=== PATIENT | male | born 1945 | race Two or more races ===

== ENCOUNTER 2022-05-27 10:17 | Inpatient (IN) | payer OTHER, MEDICAID ==
[~2022-05-27] VITALS: Ht 172.7 cm; Wt 77.2 kg
[2022-05-27] MEDS ORDERED: SODIUM CHLORIDE 0.9% 1,000 ML IV ONE (11:00)
[2022-05-27 11:25] LABS: Basophils # (auto) 0 10 ^3/uL (0-0.2); Basophils % (auto) 0.2 % (0.0-2.0); Eosinophils # (auto) 0.1 10 ^3/uL (0-0.8); Eosinophils % (auto) 0.5 % (0.0-7.0); Hematocrit 37.8 % (41.0-53.0); Hemoglobin 12.3 g/dL (13.5-17.5); Lymphocytes # (auto) 0.7 10 ^3/uL (0.4-5.4); Lymphocytes % (auto) 4.7 % (10.0-50.0); Mean Corpuscular Hemoglobin 29.3 pg (28.0-32.0); Mean Corpuscular Hgb Conc. 32.6 g/dL (32.0-36.0); Monocytes # (auto) 0.7 10 ^3/uL (0-1.3); Monocytes % (auto) 4.9 % (0.0-12.0); Neutrophils # (auto) 12.7 10 ^3/uL (1.6-8.6); Neutrophils % (auto) 89.7 % (37.0-80.0); Red Cell Distribution Width 14.8 % (11.8-14.3); White Blood Cell 14.1 10^3/uL (4.4-10.8)
[2022-05-27 11:43] LABS: Albumin 2.9 g/dL (3.4-5.0); BUN/Creatinine Ratio 27.1; Calcium 8.4 mg/dL (8.5-10.1); Potassium 4.2 mmol/L (3.5-5.1)
[2022-05-27 11:45] LABS: Bilirubin, Total 0.2 mg/dL (0.2-1.0); Total Protein 6.3 g/dL (6.4-8.2)
[2022-05-27 12:15] LABS: Urine Bacteria NONE SEEN /hpf (None Seen); Urine Blood TRACE /uL (Negative); Urine Hyaline Cast FEW /lpf (0 - 2); Urine Mucus FEW (None Seen); Urine Specific Gravity 1.021 (1.001-1.035); Urine WBC 1 /hpf (0 - 3)
[2022-05-27] MEDS ORDERED: IOHEXOL 350 MG/ML 100ML IJ ONE (13:04)
[2022-05-27] MEDS ORDERED: METF-869 PO (16:07)
[2022-05-27] MEDS ORDERED: TAMS1CAP25 PO (16:07)
[2022-05-27] MEDS ORDERED: ASPI-325 PO (16:07)
[2022-05-27] MEDS ORDERED: FLUT1AER3 INH (16:07)
[2022-05-27] MEDS ORDERED: LISI2.5T47 PO (16:07)
[2022-05-27] MEDS ORDERED: NINT1CAP2 PO (16:07)
[2022-05-27] MEDS ORDERED: ATOR10TA52 PO (16:07)
[2022-05-27] MEDS ORDERED: PANT40T PO (16:07)
[2022-05-27] MEDS ORDERED: MORPHINE SULFATE INJ 2 MG/ml SYRG IV PRN (16:15)
[2022-05-27] MEDS ORDERED: DEXTROSE (50%) 50ML SYRG IV PRN (16:15)
[2022-05-27] MEDS ORDERED: ONDANSETRON HCL 4 MG/2 ML VIAL IV PRN (16:15)
[2022-05-27] MEDS ORDERED: DOCUSATE SOD 100 MG CAP PO PRN (16:15)
[2022-05-27] MEDS ORDERED: NITROGLYCERIN 0.4 MG SL TAB SL PRN (16:15)
[2022-05-27] MEDS: SODIUM CHLORIDE 0.9% 1,000 ML IV SCH (16:36)
[2022-05-27] MEDS: ACCU-CHEK COMFORT CURVE STRIP VI SCH ×2 (16:44→23:26)
[2022-05-27] MEDS: InsuLIN REG 1unit/0.01ml Soln (100units/ml) SC SCH ×2 (16:45→23:33)
[2022-05-27] MEDS ORDERED: methylPREDNISolone SOD SUCC 125 MG/2 ML VL IV ONE (17:00)
[2022-05-27] MEDS ORDERED: ALBUTEROL SULF 2.5 MG/0.5ML(0.5%) NEB SOLN NEB PRN (17:00)
[2022-05-27] MEDS ORDERED: IPRATROPIUM BROM 0.5 MG/2.5ML INH SOL NEB PRN (17:00)
[2022-05-27] MEDS: NEOMYCIN-BACITRACIN-POLYM 15GM TOP OINT TOP SCH (23:32)
[2022-05-27] MEDS: methylPREDNISolone SOD SUCC 125 MG/2 ML VL IV SCH (23:32)
[2022-05-27] MEDS: ATORVASTATIN 20 MG TAB PO SCH (23:32)
[2022-05-28 03:30] VITALS: BP 124/71
[2022-05-28] MEDS: SODIUM CHLORIDE 0.9% 1,000 ML IV SCH (05:31)
[2022-05-28] MEDS: NEOMYCIN-BACITRACIN-POLYM 15GM TOP OINT TOP SCH ×3 (06:10→22:00)
[2022-05-28 06:35] LABS: Basophils # (auto) 0 10 ^3/uL (0-0.2); Eosinophils # (auto) 0 10 ^3/uL (0-0.8); Hematocrit 35.3 % (41.0-53.0); Hemoglobin 12.1 g/dL (13.5-17.5); Lymphocytes # (auto) 0.6 10 ^3/uL (0.4-5.4); Lymphocytes % (auto) 5.6 % (10.0-50.0); Mean Corpuscular Hemoglobin 30.4 pg (28.0-32.0); Mean Corpuscular Hgb Conc. 34.1 g/dL (32.0-36.0); Mean Corpuscular Volume 89.1 fL (80.0-100.0); Monocytes # (auto) 0.1 10 ^3/uL (0-1.3); Monocytes % (auto) 1.1 % (0.0-12.0); Neutrophils # (auto) 10.2 10 ^3/uL (1.6-8.6); Neutrophils % (auto) 93.3 % (37.0-80.0); Red Blood Cells 3.97 10^6/uL (4.5-5.90); Red Cell Distribution Width 14.8 % (11.8-14.3)
[2022-05-28] MEDS: ACCU-CHEK COMFORT CURVE STRIP VI SCH ×4 (06:40→23:11)
[2022-05-28] MEDS: methylPREDNISolone SOD SUCC 125 MG/2 ML VL IV SCH ×3 (06:46→23:10)
[2022-05-28] MEDS: InsuLIN REG 1unit/0.01ml Soln (100units/ml) SC SCH ×4 (06:48→23:37)
[2022-05-28 06:55] LABS: Albumin 2.6 g/dL (3.4-5.0); Calcium 8.7 mg/dL (8.5-10.1); Potassium 4.4 mmol/L (3.5-5.1)
[2022-05-28 07:00] LABS: BUN/Creatinine Ratio 22.6; Bilirubin, Total 0.3 mg/dL (0.2-1.0); Total Protein 6.4 g/dL (6.4-8.2)
[2022-05-28] MEDS: PANTOPRAZOLE 40 MG/10 ML VIAL INJ IV SCH (09:56)
[2022-05-28] MEDS ORDERED: ASPirin 81 mg TAB PO ONE (12:00)
[2022-05-28] MEDS ORDERED: NINT1CAP2 PO (22:35)
[2022-05-28] MEDS ORDERED: VALA500T33 PO (22:35)
[2022-05-28] MEDS: ATORVASTATIN 20 MG TAB PO SCH (23:11)
[2022-05-29 05:00] VITALS: BP 138/68
[2022-05-29] MEDS: HYDROcodone-ACET 7.5/325MG TAB PO PRN ×2 (05:20→17:06)
[2022-05-29] MEDS: methylPREDNISolone SOD SUCC 125 MG/2 ML VL IV SCH ×3 (05:21→22:48)
[2022-05-29] MEDS: NEOMYCIN-BACITRACIN-POLYM 15GM TOP OINT TOP SCH ×3 (05:28→22:49)
[2022-05-29] MEDS: ACCU-CHEK COMFORT CURVE STRIP VI SCH ×4 (05:35→22:48)
[2022-05-29] MEDS: InsuLIN REG 1unit/0.01ml Soln (100units/ml) SC SCH ×4 (05:36→22:51)
[2022-05-29 08:42] LABS: Cholesterol 153 mg/dL (< 200); HDL Cholesterol 61 mg/dL (40-59); LDL Cholesterol 78 mg/dL (< 100); Triglycerides 105 mg/dL (< 150)
[2022-05-29 09:14] VITALS: BP 135/66
[2022-05-29] MEDS: ASPirin 81 mg TAB PO SCH (10:14)
[2022-05-29] MEDS: PANTOPRAZOLE 40 MG/10 ML VIAL INJ IV SCH (10:15)
[2022-05-29] MEDS: NINTEDANIB ESYLATE 150 MG PO SCH ×2 (11:41→22:48)
[2022-05-29 14:03] VITALS: BP 142/71
[2022-05-29 16:30] VITALS: BP 144/64
[2022-05-29] MEDS ORDERED: TAMSULOSIN HYDROCHLORIDE 0.4 MG CAP PO SCH ×2 (18:00→22:00)
[2022-05-29 22:00] VITALS: BP 130/60
[2022-05-29] MEDS: ATORVASTATIN 20 MG TAB PO SCH (22:48)
[2022-05-30] MEDS: HYDROcodone-ACET 7.5/325MG TAB PO PRN (02:40)
[2022-05-30 05:00] VITALS: BP 134/63
[2022-05-30] MEDS: methylPREDNISolone SOD SUCC 125 MG/2 ML VL IV SCH ×2 (05:33→14:29)
[2022-05-30] MEDS: NEOMYCIN-BACITRACIN-POLYM 15GM TOP OINT TOP SCH ×2 (05:33→14:24)
[2022-05-30] MEDS: ACCU-CHEK COMFORT CURVE STRIP VI SCH ×2 (06:31→11:34)
[2022-05-30] MEDS: InsuLIN REG 1unit/0.01ml Soln (100units/ml) SC SCH ×2 (06:33→13:19)
[2022-05-30] MEDS ORDERED: PANTOPRAZOLE 40 MG TAB PO SCH (07:00)
[2022-05-30 08:30] VITALS: BP 158/74
[2022-05-30] MEDS ORDERED: ASPirin-EC 81 mg tab PO SCH (10:00)
[2022-05-30] MEDS ORDERED: metFORMIN HYDROCHLORIDE 500 MG TAB PO SCH (10:00)
[2022-05-30] MEDS ORDERED: PATIENTS OWN MEDICATION (Atorvastatin Calcium 1 TAB) PO SCH (10:00)
[2022-05-30] MEDS: ASPirin 81 mg TAB PO SCH (10:00)
[2022-05-30] MEDS: NINTEDANIB ESYLATE 150 MG PO SCH (10:00)
[2022-05-30] MEDS ORDERED: FLUTICASONE UMECLIDINIUM VILAN IN SCH (10:00)
[2022-05-30 13:00] VITALS: BP 151/77
== END 2022-05-30 16:32 | disposition home or self-care (01) | DRG 312 ==
LOC: EDBD 10:17 → ER 10:17 → TELE 16:18 → TELE-WESTW 05-28 21:20
PROVIDERS: ADMIT Nurse Practitioner Family; ATTEND Internal Medicine Geriatric Medicine
DX: R55 Syncope and collapse (principal); E43 Unspecified severe protein-calorie malnutrition; J96.21 Acute and chronic respiratory failure with hypoxia; I24.9 Acute ischemic heart disease, unspecified; Z20.822 Contact with and (suspected) exposure to COVID-19; S00.83XA Contusion of other part of head, initial encounter; E11.9 Type 2 diabetes mellitus without complications; J84.10 Pulmonary fibrosis, unspecified; J44.9 Chronic obstructive pulmonary disease, unspecified; D72.829 Elevated white blood cell count, unspecified; E78.5 Hyperlipidemia, unspecified; I10 Essential (primary) hypertension; N40.0 Benign prostatic hyperplasia without lower urinary tract symptoms; S00.81XA Abrasion of other part of head, initial encounter; W18.39XA Other fall on same level, initial encounter; Z68.25 Body mass index [BMI] 25.0-25.9, adult; Y93.89 Activity, other specified; Y92.89 Other specified places as the place of occurrence of the external cause; Y99.8 Other external cause status; Z99.81 Dependence on supplemental oxygen
CPT/HCPCS: 36415; 36600; 70450; 70486; 71046; 71275; 80053; 80061; 81001; 82805; 82962; 83735; 83880; 84100; 84484; 85025; 85379; 87426; 93005; 93306; 94640; 96361; 96374; 96375; 97163; C9113; G0378; J1815